=== PATIENT | male | born 1995 | race American Indian/Alaskan Native ===

== ENCOUNTER 2020-10-04 09:34 | Emergency (ER) | payer BC ==
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
[2020-10-04 11:31] VITALS: BP 138/90
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
== END 2020-10-04 12:00 | disposition left against medical advice (07) ==
LOC: ED 09:34
DX: M54.5 Low back pain (principal); Z88.0 Allergy status to penicillin
CPT/HCPCS: 72100

== ENCOUNTER 2020-11-22 22:27 | Emergency (ER) | payer BC ==
[2020-11-22] MEDS ORDERED: TETANUS,DIPH,PERTUSS(ACELL) VACCINE 0.5 ML SYRINGE IM ONE (22:52)
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
[2020-11-22] MEDS ORDERED: CLINDAMYCIN 300 MG/50 mL 300 MG/50 ML BAG IV ONE (23:46)
[2020-11-23] LABS: Hematocrit 40.8 % (35.5-45.6); Hemoglobin 13.7 gm/dl (11.8-15.2); Mean Corpuscular HGB Conc 34 % (32-34); Mean Corpuscular Volume 90 fl (84-94); Platelet Count 192 K/mm3 (140-440); Red Blood Count 4.56 M/mm3 (3.65-5.03); Red Cell Distribution Width 14.7 % (13.2-15.2)
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
[2020-11-23 00:26] LABS: Alanine Aminotransferase 13 units/L (7-56); Albumin 4.6 g/dL (3.9-5); BUN/Creatinine Ratio 16; Blood Urea Nitrogen 18 mg/dL (9-20); Calcium 9.6 mg/dL (8.4-10.2); Hemolysis Index 1
[2020-11-23] MEDS ORDERED: TETANUS,DIPH,PERTUSS(ACELL) VACCINE 0.5 ML SYRINGE IM ONE (01:04)
[2020-11-23 05:58] VITALS: BP 114/66
== END 2020-11-23 01:10 | disposition home or self-care (01) ==
LOC: ED 22:27
DX: S71.111A Laceration without foreign body, right thigh, initial encounter (principal); S71.131A Puncture wound without foreign body, right thigh, initial encounter; M79.651 Pain in right thigh; Z88.0 Allergy status to penicillin; W26.8XXA Contact with other sharp object(s), not elsewhere classified, initial encounter; Y93.89 Activity, other specified; Y92.89 Other specified places as the place of occurrence of the external cause; Y99.8 Other external cause status
CPT/HCPCS: 36415; 73552; 73706; 80053; 85027; 90471; 90715; 96365; 99284; Q9967